=== PATIENT | female | born 2000 | race Asian ===

== ENCOUNTER 2020-07-12 07:40 | Outpatient (REF) | payer OTHER, SELFPAY ==
[2020-07-12 08:43] LABS: MANUAL DIFF FLAG NO
[2020-07-12 08:51] LABS: Basophils Absolute Auto 0.1 X10*3/uL (0.0-0.2); Basophils Percent Auto 0.7 % (0-2); Eosinophils Absolute Auto 0.2 X10*3/uL (0.0-0.4); Eosinophils Percent Auto 2.7 % (0-4); Hemoglobin 10.7 g/dl (12.0-16.0); Imm Gran Abs Auto 0.02 X10*3/uL (0.00-0.03); Imm Gran Pct Auto 0.3 % (0.0-0.4); Lymphocytes Absolute Auto 2.6 X10*3/uL (1.2-4.9); Lymphocytes Percent Auto 39.4 % (20-40); Mean Corpuscular HGB Conc 30.6 g/dl (31.0-35.0); Mean Corpuscular Hemoglobin 24.7 pg (27.0-33.0); Mean Corpuscular Volume 80.8 fL (80-98); Mean Platelet Volume 10.4 fL (9.4-12.3); Monocytes Absolute Auto 0.5 X10*3/uL (0.1-1.2); Neutrophils Absolute Auto 3.3 X10*3/uL (2.0-8.3); Neutrophils Percent Auto 49.9 % (45-73); Platelet Count 314 X10*3/uL (160-400); Red Blood Count 4.33 X10*6/uL (4.20-5.50); Red Cell Distribution Width 18.9 % (11.0-16.0); Retic HGB Equivalent 32.3 pg (30.0-35.0); Reticulocyte Percent 2.9 % (0.5-1.8); Reticulocytes Absolute 0.127 X10*6/uL (0.026-0.095); White Blood Count 6.7 X10*3/uL (4.8-10.8)
[2020-07-12 09:03] LABS: Iron 42 mcg/dL (30-160); Percent Iron Saturation 11 % (15-50); Total Iron Binding Capacity 388 mcg/dL (228-428); Unsaturated Iron Binding 346 ug/dL
== END 2020-07-12 07:41 | disposition home or self-care (01) ==
LOC: HO.LAB 07:40
PROVIDERS: PCP Pediatrics Adolescent Medicine; Visit Provider Pediatrics Adolescent Medicine
DX: D50.8 Other iron deficiency anemias (principal)
CPT/HCPCS: 36415; 83540; 85025; 85045

== ENCOUNTER 2020-08-23 07:28 | Outpatient (REF) | payer OTHER, SELFPAY ==
[2020-08-23 08:31] LABS: Hematocrit 35.1 % (37-47); Hemoglobin 11.1 g/dl (12.0-16.0); Mean Corpuscular HGB Conc 31.6 g/dl (31.0-35.0); Mean Corpuscular Hemoglobin 25.5 pg (27.0-33.0); Mean Corpuscular Volume 80.7 fL (80-98); Mean Platelet Volume 9.7 fL (9.4-12.3); Platelet Count 353 X10*3/uL (160-400); Red Blood Count 4.35 X10*6/uL (4.20-5.50); Red Cell Distribution Width 16.5 % (11.0-16.0); White Blood Count 6.2 X10*3/uL (4.8-10.8)
[2020-08-23 09:01] LABS: Iron 242 mcg/dL (30-160); Percent Iron Saturation 61 % (15-50); Total Iron Binding Capacity 397 mcg/dL (228-428); Unsaturated Iron Binding 155 ug/dL
[2020-08-23 09:25] LABS: TSH reflex Free T4 3.86 uIU/mL (0.32-4.0)
[2020-08-24 05:36] LABS: Lyme Abs Screen <0.90 index
[2020-08-24 16:56] LABS: Venous Lead <1 mcg/dL (<5)
[2020-08-25 05:00] LABS: Folate 13.1 ng/mL (> or = 4.0); Vitamin B12 379 pg/mL (200-900)
[2020-09-03 16:55] LABS: Mercury, serum/plasma None Detected
== END 2020-08-23 07:29 | disposition home or self-care (01) ==
LOC: HO.LAB 07:28
PROVIDERS: PCP Pediatrics Adolescent Medicine; Visit Provider Pediatrics Adolescent Medicine
DX: R53.82 Chronic fatigue, unspecified (principal); F32.0 Major depressive disorder, single episode, mild; Z86.2 Personal history of diseases of the blood and blood-forming organs and certain disorders involving the immune mechanism
CPT/HCPCS: 36415; 82607; 82746; 83540; 83655; 83825; 84443; 85027; 86618

== ENCOUNTER 2020-08-29 09:06 | Outpatient (REF) | payer OTHER, SELFPAY ==
--- NOTE | ~2020-08-29 | MR_ITS ---
EXAMINATION: MR BRAIN WITHOUT CONTRAST CLINICAL INFORMATION: Attention deficit disorder. COMPARISON: None available. TECHNIQUE: MRI of the brain was obtained using routine sequences without contrast. FINDINGS: No focal restricted diffusion is demonstrated to suggest acute or subacute cerebral ischemia. No evidence of acute or chronic hemorrhagic products on heme-sensitive imaging. Normal parenchymal signal characteristics. The ventricles are normal in morphology and size. No abnormal mass effect. No midline shift. Normal appearance of the pituitary gland. No abnormalities of the posterior fossa with normal appearance of the brainstem and cerebellum. Normal arterial and venous vascular flow voids are present. Normal, homogeneous marrow signal. Minimal mucosal thickening of the paranasal sinuses. No signal abnormalities within the mastoids. MR/MR head/brain wo con IMPRESSION: No acute intracranial abnormalities. No MRI abnormalities to correlate with the patient's symptoms.
== END 2020-08-29 09:07 | disposition home or self-care (01) ==
LOC: HO.MRI 09:06
PROVIDERS: Visit Provider Psychiatry & Neurology Neurology
DX: F90.0 Attention-deficit hyperactivity disorder, predominantly inattentive type (principal)
CPT/HCPCS: 70551

== ENCOUNTER 2022-09-04 07:09 | Outpatient (REF) | payer OTHER, SELFPAY ==
[2022-09-04 07:23] LABS: MANUAL DIFF FLAG NO
[2022-09-04 07:37] LABS: Basophils Percent Auto 0.5 % (0-2); Eosinophils Absolute Auto 0.3 X10*3/uL (0.0-0.4); Eosinophils Percent Auto 3.4 % (0-4); Hematocrit 33.9 % (37.0-47.0); Hemoglobin 10.7 g/dl (12.0-16.0); Imm Gran Abs Auto 0.02 X10*3/uL (0.00-0.03); Imm Gran Pct Auto 0.3 % (0.0-0.4); Immature Retic Fraction 17.5 % (3.0-15.9); Lymphocytes Absolute Auto 3.6 X10*3/uL (1.2-4.9); Lymphocytes Percent Auto 47.9 % (20-40); Mean Corpuscular HGB Conc 31.6 g/dl (31.0-35.0); Mean Corpuscular Hemoglobin 24.6 pg (27.0-33.0); Mean Corpuscular Volume 77.9 fL (80.0-98.0); Mean Platelet Volume 9.3 fL (9.4-12.3); Monocytes Absolute Auto 0.5 X10*3/uL (0.1-1.2); Monocytes Percent Auto 6.6 % (2-11); Neutrophils Absolute Auto 3.1 x10*3/uL (2.0-8.3); Neutrophils Percent Auto 41.3 % (45-73); Platelet Count 367 X10*3/uL (160-400); Red Blood Count 4.35 X10*6/uL (4.20-5.50); Red Cell Distribution Width 15.3 % (11.0-16.0); Retic HGB Equivalent 24.6 pg (30.0-35.0); Reticulocyte Percent 1.5 % (0.5-1.8); Reticulocytes Absolute 0.064 X10*6/uL (0.026-0.095); White Blood Count 7.4 X10*3/uL (4.8-10.8)
[2022-09-04 08:15] LABS: Alanine Aminotransferase 9 U/L (0-31); Albumin Level 4.1 g/dL (3.5-5.0); Alkaline Phosphatase 90 U/L (39-117); Anion Gap 11 (12-20); Aspartate Amino Transferase 14 U/L (5-31); Bilirubin Total 0.3 mg/dL (0.0-1.0); Blood Urea Nitrogen 11 mg/dL (9-16); Calcium 9.2 mg/dL (8.4-10.2); Carbon Dioxide 26 mmol/L (22-29); Chloride 106 mmol/L (96-108); Cholesterol 189 mg/dL; Estimated Glomerular Filt Rate > 60; Glucose Random 95 mg/dL (60-115); HDL Cholesterol 55 mg/dL; Iron 26 mcg/dL (30-160); LDL Cholesterol Calculated 120 mg/dl; Percent Iron Saturation 7 % (15-50); Potassium 4.4 mmol/L (3.3-5.1); Sodium 139 mmol/L (135-145); Total Iron Binding Capacity 390 mcg/dL (228-428); Total Protein 7.2 g/dL (6.5-8.0); Triglycerides 74 mg/dL; Unsaturated Iron Binding 364 ug/dL
[2022-09-04 08:35] LABS: Appearance Urine Clear; Color Urine Yellow; Glucose Urine UA Negative (Negative); Leukocyte Esterase Urine Negative (Negative); Nitrite Urine Negative (Negative); PH 5.5 (5.0-9.0); Specific Gravity - Urine 1.025 (1.005-1.025); Urine Blood Negative (Negative); Urine Ketones Negative (Negative); Urine Protein Negative (Neg-Trace)
[2022-09-04 08:39] LABS: Bacteria Urine None Seen (None Seen); Hyaline Casts Urine 0-2 /LPF (0-2); RBC Urine 0-2 /HPF (0-2); WBC Urine 0-5 /HPF (0-5)
[2022-09-04 08:44] LABS: Ferritin < 2 ng/mL (10-122); Folate 12.4 ng/mL (> or = 4.0); Free T4 (Free Thyroxine) 0.79 ng/dL (0.71-1.85); Thyroid Stimulating Hormone 4.04 uIU/mL (0.32-4.0); Vitamin B12 472 pg/mL (200-900)
== END 2022-09-04 07:10 | disposition home or self-care (01) ==
LOC: HO.LAB 07:09
PROVIDERS: PCP Internal Medicine; Visit Provider Internal Medicine
DX: D50.9 Iron deficiency anemia, unspecified (principal); E78.00 Pure hypercholesterolemia, unspecified
CPT/HCPCS: 36415; 80053; 80061; 81001; 82607; 82728; 82746; 83540; 84439; 84443; 85025; 85045

== ENCOUNTER 2023-02-26 07:20 | Outpatient (REF) | payer OTHER, SELFPAY ==
[2023-02-26 07:49] LABS: MANUAL DIFF FLAG NO
[2023-02-26 08:05] LABS: Basophils Percent Auto 0.6 % (0-2); Eosinophils Absolute Auto 0.1 X10*3/uL (0.0-0.4); Eosinophils Percent Auto 1.6 % (0-4); Hematocrit 32.5 % (37.0-47.0); Imm Gran Abs Auto 0.01 X10*3/uL (0.00-0.03); Imm Gran Pct Auto 0.2 % (0.0-0.4); Immature Retic Fraction 16.9 % (3.0-15.9); Lymphocytes Percent Auto 39.5 % (20-40); Mean Corpuscular HGB Conc 30.8 g/dl (31.0-35.0); Mean Corpuscular Hemoglobin 23.8 pg (27.0-33.0); Mean Corpuscular Volume 77.2 fL (80.0-98.0); Mean Platelet Volume 9.6 fL (9.4-12.3); Monocytes Absolute Auto 0.6 X10*3/uL (0.1-1.2); Monocytes Percent Auto 11.1 % (2-11); Neutrophils Absolute Auto 2.4 x10*3/uL (2.0-8.3); Platelet Count 297 X10*3/uL (160-400); Red Blood Count 4.21 X10*6/uL (4.20-5.50); Reticulocyte Percent 1.4 % (0.5-1.8); Reticulocytes Absolute 0.059 X10*6/uL (0.026-0.095); White Blood Count 5.1 X10*3/uL (4.8-10.8)
[2023-02-26 08:53] LABS: Iron 17 mcg/dL (30-160); Percent Iron Saturation 5 % (15-50); Total Iron Binding Capacity 363 mcg/dL (228-428); Unsaturated Iron Binding 346 ug/dL
[2023-02-26 09:13] LABS: Ferritin 4 ng/mL (10-122); Free T4 (Free Thyroxine) 0.86 ng/dL (0.71-1.85); Thyroid Stimulating Hormone 1.45 uIU/mL (0.32-4.0)
[2023-02-26 09:19] LABS: Folate 10.2 ng/mL (> or = 4.0); Vitamin B12 426 pg/mL (200-900)
== END 2023-02-26 07:21 | disposition home or self-care (01) ==
LOC: HO.LAB 07:20
PROVIDERS: PCP Internal Medicine; Visit Provider Internal Medicine
DX: D50.9 Iron deficiency anemia, unspecified (principal); E66.3 Overweight; F90.9 Attention-deficit hyperactivity disorder, unspecified type
CPT/HCPCS: 36415; 82607; 82728; 82746; 83540; 84439; 84443; 85025; 85045

== ENCOUNTER 2023-06-02 10:05 | Outpatient (REF) | payer OTHER, SELFPAY ==
[2023-06-02 10:14] LABS: MANUAL DIFF FLAG NO
[2023-06-02 11:40] LABS: Basophils Absolute Auto 0.1 X10*3/uL (0.0-0.2); Basophils Percent Auto 0.8 % (0-2); Eosinophils Absolute Auto 0.1 X10*3/uL (0.0-0.4); Eosinophils Percent Auto 1.7 % (0-4); Hematocrit 39.7 % (37.0-47.0); Hemoglobin 12.8 g/dl (12.0-16.0); Imm Gran Abs Auto 0.02 X10*3/uL (0.00-0.03); Imm Gran Pct Auto 0.3 % (0.0-0.4); Lymphocytes Absolute Auto 2.4 X10*3/uL (1.2-4.9); Lymphocytes Percent Auto 39.9 % (20-40); Mean Corpuscular HGB Conc 32.2 g/dl (31.0-35.0); Mean Corpuscular Hemoglobin 28.6 pg (27.0-33.0); Mean Corpuscular Volume 88.6 fL (80.0-98.0); Mean Platelet Volume 9.9 fL (9.4-12.3); Monocytes Absolute Auto 0.4 X10*3/uL (0.1-1.2); Monocytes Percent Auto 6.8 % (2-11); Neutrophils Percent Auto 50.5 % (45-73); Platelet Count 311 X10*3/uL (160-400); Red Blood Count 4.48 X10*6/uL (4.20-5.50); Red Cell Distribution Width 14.2 % (11.0-16.0); Retic HGB Equivalent 34.5 pg (30.0-35.0); Reticulocyte Percent 1.8 % (0.5-1.8); Reticulocytes Absolute 0.082 X10*6/uL (0.026-0.095)
[2023-06-02 12:29] LABS: Iron 221 mcg/dL (30-160); Percent Iron Saturation 68 % (15-50); Total Iron Binding Capacity 326 mcg/dL (228-428); Unsaturated Iron Binding 105 ug/dL
[2023-06-02 12:47] LABS: Ferritin 29 ng/mL (10-122)
[2023-06-02 12:50] LABS: Folate 6.8 ng/mL (> or = 4.0)
[2023-06-02 15:41] LABS: Vitamin B12 500 pg/mL (200-900)
== END 2023-06-02 10:06 | disposition home or self-care (01) ==
LOC: HO.LAB 10:05
PROVIDERS: PCP Internal Medicine; Visit Provider Internal Medicine
DX: D50.9 Iron deficiency anemia, unspecified (principal)
CPT/HCPCS: 36415; 82607; 82728; 82746; 83540; 85025; 85045

== ENCOUNTER 2023-07-08 14:45 | Outpatient (AMB) | payer OTHER, SELFPAY ==
--- NOTE | 2023-07-08 14:46 | A.OFFPC_ITS ---
Vital Signs 07/08/23 14:47 Height 5 ft 1 in Weight 136 lb BMI 25.7 BP 108/80 Blood Pressure Location Lt brachial Position Sitting Pulse 62 Pulse Source Pulse Oximeter Pulse Oximetry (%) 100 Oxygen Delivery Method Room Air Intake Visit Reasons: Annual Exam Intake Note: Patient is here today for a physical. Personalized Living Manager Required: No Accompanied by: Self / Same As Patient Is last menstrual period known: Yes Last menstrual period: 06/21/23 Allergies No Known Allergies Allergy (Verified 07/08/23 14:49) Medication List - Last Reconciled 07/08/23 by Collette Tyson MD ascorbate calcium (vitamin C) 500 mg PO DAILY cholecalciferol (vitamin D3) 25 mcg PO DAILY ferrous sulfate 324 mg PO DAILY loratadine 10 mg PO DAILY Tobacco use date assessed: 07/08/23 Dental Screening Dental Screen Date: 07/08/23 Did you have a dental visit in the last 12 months?: Yes Did you have a dental problem in the last 6 months where you did not have access to dental care?: No Was dental information given to patient?: Patient has dentist HPI Annual Exam HPI Details 22-year-old female with a history of ADH D in iron deficiency anemia coming in for physical exam last seen in June 2022. [facility] Family History Maternal Grandmother Breast cancer Social History Housing: Other Alcohol intake: never Patient Tobacco Use Status: Never used Tobacco e-Cigarette/Vaping Use: Never Used Second Hand Smoke Exposure: No Current occupational status: student Cognitive needs: No Hearing needs: No Vision needs: Yes Female Reproductive History Menstrual Date of last menstrual period: 06/21/23 Questionnaire PHQ-9 Over the last 2 weeks, how often have you been bothered by any of the following problems? 1. Little interest or pleasure in doing things: not at all 2. Feeling down, depressed, or hopeless: not at all 3. Trouble falling or staying asleep, or sleeping too much: not at all 4. Feeling tired or having little energy: not at all 5. Poor appetite or overeating: not at all 6. Feeling bad about yourself - or that you are a failure or have let yourself or your family down: not at all 7. Trouble concentrating on things, such as reading the newspaper or watching television: not at all 8. Moving or speaking so slowly that other people could have noticed. Or the opposite - being so fidgety or restless that you have been moving around a lot more than usual: not at all 9. Thoughts that you would be better off or of hurting yourself in some way: not at all Total score: 0 Depression Screening Interpretation: Negative Depression Screening Done: Yes 15068 - PHQ-9 Billing: Yes Source: Developed by Drs. Augustine Servin, Sandra Cunha, Marc Chatman and colleagues, with an educational zuly from [employer]. Thrive Questionnaire Date Thrive assessed: 07/08/23 I am a: Patient What is your living situation today?: I have a steady place to live Within the past 12 months, did the food you bought not last and you didn't have the money to get more?: Never true Within the past 12 months, did you worry whether your food would run out before you got money to buy more?: Never true Do you have trouble paying for medicines?: No Do you have trouble getting transportation to medical appointments?: No Do you have trouble paying your heating and electricity bill?: No Do you have trouble taking care of your child, family member or friend?: No Do you have trouble with day-to-day activities such as bathing, preparing meals, shopping, managing finances, etc.?: No Are you currently unemployed and looking for a job?: No Are you interested in more education?: No Please select the resources that you would like help with: None Currently or been in a relationship where the following occur: no concerns reported THRIVE Score: 0 AUDIT C Alcohol Use Questionnaire (AUDIT-C) 1. How often do you have a drink containing alcohol?: Never 3. How often do you have six or more drinks on one occasion?: Never Total Score: 0 CATE-7 AMB Questionnaire CATE-7 Date CATE - 7 assessed: 07/08/23 Feeling nervous, anxious, or on edge: 0 = Not at all Not being able to stop or control worryin = Not at all Worrying too much about different things: 0 = Not at all Trouble relaxin = Not at all Being so restless that it is hard to sit still: 0 = Not at all Becoming easily annoyed or irritable: 0 = Not at all Feeling afraid as if something awful might happen: 0 = Not at all Total CATE-7 score (0-4 normal; 5-9 mild; 10-14 moderate; 15-21 severe): 0 Source: Developed by Drs. Augustine Servin, Sandra Cunha, Marc Chatman and colleagues, with an educational zuly from [employer]. CATE-7 Assessment Billing CATE-7 Assessment Tool: CATE-7 Assessment 91607 Review of Systems Const Denies poor appetite and Denies weakness Eyes Denies no additional complaints ENT Reports Normal hearing present, Denies dizziness, Denies nasal congestion, D enies tinnitus and Denies sore throat Card Denies chest pain, Denies syncope, Denies rapid heart rate and Denies dyspnea Resp Denies cough and Denies dyspnea GI Denies change in stool character, Reports constipation, Denies diarrhea, Denies nausea and Denies vomiting Denies urinary frequency, Denies difficulty voiding and Denies dysuria Neuro Reports Normal hearing present, Denies confusion, Denies dizziness, Denies syncope and Denies weakness Psych Denies confusion Physical exam (Primary Care) Vital Signs: Last Vital Signs Pulse 62 07/08/23 14:47 BP 108/80 07/08/23 14:47 Pulse Ox 100 07/08/23 14:47 Oxygen Delivery Method Room Air 07/08/23 14:47 BMI result Body Mass Index 25.7 Tobacco/Smoking Status: Tobacco use Status Tobacco use date assessed 07/08/23 07/08/23 14:53 Patient Tobacco Use Status Never used Tobacco 07/08/23 14:53 e-Cigarette/Vaping Use Never Used 07/08/23 14:53 PHQ-9: PHQ-9 Score PHQ-9: Total score 0 07/08/23 14:53 Depression Screening Interpretation: Negative Thrive Assessment: Date of Thrive Assessment Date Thrive assessed 07/08/23 07/08/23 14:53 Currently or been in a relationship where the following occur: no concerns reported Const General: alert and awake; No confusion Orientation/consciousness: No confusion HENMT Head: Yes normocephalic Ears: external ears normal and TM's normal bilaterally Face and sinus: Yes normal facial exam Mouth: moist mucous membranes Throat: Yes tonsils normal Eyes Conjunctivae: conjunctivae normal Pupils: Equal, round and reactive pupils present and Pupil accommodation reflex normal Direct Ophthalmoscopy: normal light reflex Neck Neck: No lymphadenopathy Thyroid: Thyroid normal Chest Chest palpation & inspection: normal inspection of the chest Resp Effort & Inspection: normal respiratory effort and no audible wheezes Auscultation: clear to auscultation bilaterally, no crackles, no wheezes and lung sounds not diminished Cardio Rate: regular rate Rhythm: regular rhythm Peripheral pulses: radial pulses present and dorsalis pedis present GI Palpation (GI): no masses Auscultation: normal bowel sounds and normoactive bowel sounds Rectal Exam - Female: deferred Skin General skin exam: no rashes or lesions noted Rashes: no rashes Neuro General: deep tendon reflexes 2+ bilaterally and No confusion Cranial nerves: Yes Equal, round and reactive pupils present, Yes Midline tongue present, Yes Normal hearing present and Yes Ability to bilaterally elevate shoulders present Cognition (Neuro): normal cognition Gait exam (Neuro): Normal gait present Motor exam (neuro): 5/5 motor strength present throughout Deep tendon reflexes (DTR's): Right brachioradialis reflex intensity grade: 2+, Left brachioradialis reflex intensity grade: 2+, Right patellar reflex intensity grade: 2+ and Left patellar reflex intensity grade: 2+ Extrem General: No edema Assessment and Plan Assessment & Plan (1) Annual physical exam: Code(s): Z00.00 - Encounter for general adult medical examination without abnormal findings (2) Iron deficiency anemia: Code(s): D50.9 - Iron deficiency anemia, unspecified Plan: Resolved continue with iron rich foods. Orders: Orders Complete Blood Count Auto Diff 6 Months D50.9 - Iron deficiency anemia, unspecified Comprehensive Met. Panel 6 Months D50.9 - Iron deficiency anemia, unspecified Free T4 (Free Thyroxine) 6 Months D50.9 - Iron deficiency anemia, unspecified Thyroid Stimulating Hormone 6 Months D50.9 - Iron deficiency anemia, unspecified IRON PROFILE 6 Months D50.9 - Iron deficiency anemia, unspecified Ferritin 6 Months D50.9 - Iron deficiency anemia, unspecified Vitamin B12 and Folate 6 Months D50.9 - Iron deficiency anemia, unspecified Lipid Panel 6 Months D50.9 - Iron deficiency anemia, unspecified, E78.00 - Pure hypercholesterolemia, unspecified Reticulocyte Count 6 Months D50.9 - Iron deficiency anemia, unspecified Coding Level of Care Code Est Pt Prev Care 18-39y([id number]) Diagnoses Annual physical exam Z00.00 Iron deficiency anemia D50.9 Additional Codes CATE-7 Assessment Billing - CATE-7 Assessment Tool: CATE-7 Assessment [id number] ([id number])
[2023-07-08 14:47] VITALS: BP 108/80; PULSE 62; O2SAT 100; BMI 25.7
== END 2023-07-08 15:46 | disposition home or self-care (01) ==
LOC: HO.HMGH 14:45
PROVIDERS: PCP Internal Medicine; Visit Provider Internal Medicine
DX: Z00.00 Encounter for general adult medical examination without abnormal findings (principal); D50.9 Iron deficiency anemia, unspecified
CPT/HCPCS: 99395